=== PATIENT | female | born 1975 | race Caucasian/White ===

== ENCOUNTER 2016-10-29 17:22 | Emergency (ER) | payer BC ==
--- NOTE | 2016-10-29 17:51 | UCPHY ---
H & P Patient Type: New Chief Complaint Nursing Narrative: pain to lower back and sacral area for several months, denies recent injury Time Seen by Provider: 10/29/16 17:35 HPI/ROS: CHIEF COMPLAINT: Low back pain HISTORY OF PRESENT ILLNESS: The patient is a 41-year-old female who comes to the Urgent Care complaining of low back pain. She states that she has had gradually increasing low back pain over the last 2 months. She has tried exercise and physical therapy without any improvement. She has a history of breast cancer with lumpectomy 2007. She has not had any recent PET scans or further follow-up. The pain is in the middle lower back and radiates to both flanks. It does not radiate down either leg. No paresthesias. She does complain of imbalance however and almost fell down the stairs today at work. She feels that this imbalance sensation is intermittent. No fevers. No trauma. No bowel or bladder abnormalities. She states that the pain is worse in the morning. REVIEW OF SYSTEMS: Constitutional: denies: chills, fever, recent illness, recent injury EENTM: denies: blurred vision, double vision, nose congestion Respiratory: denies: cough, shortness of breath Cardiac: denies: chest pain, irregular heart rate, lightheadedness, palpitations Gastrointestinal/Abdominal: denies: abdominal pain, diarrhea, nausea, vomiting, blood streaked stools Genitourinary: denies: dysuria, frequency, hematuria, pain Musculoskeletal: See HPI Skin: denies: lesions, rash, jaundice, bruising Neurological: denies: headache, numbness, paresthesia, tingling, dizziness, weakness Hematologic/Lymphatic: denies: blood clots, easy bleeding, easy bruising Immunologic/allergic: denies: HIV/AIDS, transplant EXAM: GENERAL: Well-appearing, well-nourished and in no acute distress. HEAD: Atraumatic, normocephalic. EYES: Pupils equal round and reactive to light, extraocular movements intact, sclera anicteric, conjunctiva are normal. ENT: TMs normal, nares patent, oropharynx clear without exudates. Moist mucous membranes. NECK: Normal range of motion, supple without lymphadenopathy or JVD. LUNGS: Breath sounds clear to auscultation bilaterally and equal. No wheezes rales or rhonchi. HEART: Regular rate and rhythm without murmurs, rubs or gallops. ABDOMEN: Soft, nontender, normoactive bowel sounds. No guarding, no rebound. No masses appreciated. BACK: No CVA tenderness, no spinal tenderness, step-offs or deformities EXTREMITIES: Normal range of motion, no pitting or edema. No clubbing or cyanosis. NEUROLOGICAL: Cranial nerves II through XII grossly intact. Normal speech, normal gait here in the urgent care. able to touch toes, 5/5 strength, normal movement in all extremities, normal sensation PSYCH: Normal mood, normal affect. SKIN: Warm, dry, normal turgor, no visible rashes or lesions. Source: Patient Exam Limitations: No limitations - Personal History LMP (Females 10-55): 22-28 Days Ago - Medical/Surgical History Hx Asthma: No Hx Chronic Respiratory Disease: No Hx Diabetes: No Hx Cardiac Disease: No Hx Renal Disease: No Hx Cirrhosis: No Other PMH: breast cancer - Family History Significant Family History: Hypertension - Social History Smoking Status: Never smoked Alcohol Use: Sober Drug Use: None Constitutional: Initial Vital Signs Temperature (C) 36.6 C 10/29/16 17:30 Heart Rate 62 10/29/16 17:30 Respiratory Rate 18 10/29/16 17:30 Blood Pressure 119/66 10/29/16 17:30 O2 Sat (%) 98 10/29/16 17:30 O2 Delivery Mode Room Air Allergies/Adverse Reactions: No Known Allergies Allergy (Verified 10/29/16 18:08) Home Medications: Medication Instructions Recorded NK [No Known Home Meds] 10/29/16 Medical Decision Making ED Course/Re-evaluation: The patient's history is concerning for metastasis to the lumbar spine and cord impingement. I will transfer her to the emergency department. I discussed her case with Dr. Cande Contreras and recommended MRI imaging. Patient understands and agrees with this plan. She will drive herself there does not wish to take an ambulance. Differential Diagnosis: Partial list of the Differential diagnosis considered include but were not limited to; muscle strain, stenosis, cord compression, diastasis and although unlikely based on the history and physical exam, I also considered infection, aneurysm, dissection. Departure - Departure Disposition: [facility] ER Clinical Impression: Low back pain Qualifiers: Chronicity: acute Back pain laterality: midline Sciatica presence: without sciatica Qualifier Code: (M54.5) Low back pain Condition: Fair Instructions: Acute Low Back Pain (ED) Referrals: NONE *PRIMARY CARE P,. [Primary Care Provider] - As per Instructions - PQRS PQRS Measurement: Not applicable
--- NOTE | 2016-10-29 19:02 | EDPHY ---
H & P Time Seen by Provider: 10/29/16 17:35 HPI/ROS: CHIEF COMPLAINT: Low back pain HISTORY OF PRESENT ILLNESS: This patient is a 41 year old female who was referred to the Emergency Department [place] [facility] [place] pain over the past 3-4 months and increasing in severity over time. Today, when walking up the stairs, she experienced an acute episode of sharp pain to her low back and states that her low back and knee "gave out" causing her to collapse. She describes her pain as a non-radiating localized in a band over her lower back, exacerbated when bending over, and most severe in the morning (7 /10 in severity). She denies any bowel or urinary complaints. She has tried Ibuprofen, chiropractic adjustment, and changes to her exercise routine without improvement to her pain. She was able to ski this weekend without acute exacerbation of her pain. Medical history includes breast cancer in 2007. REVIEW OF SYSTEMS: Aside from elements discussed in the HPI, a comprehensive 10-point review of systems was reviewed and is negative. PAST MEDICAL HISTORY: Breast cancer treated with lumpectomy, chemo, and radiation (2007). Cholecystectomy. SOCIAL HISTORY: Single, lives in [place]. PHYSICAL EXAM: VITAL SIGNS: Reviewed by me GENERAL: Well-developed, well-nourished, resting comfortably in no respiratory distress. HEENT: Atraumatic. Eyes: No icterus, no injection. Mouth: moist mucous membranes. No erythema or lesions. Neck: supple with no adenopathy. LUNGS: Clear to auscultation bilaterally, no wheezes, rhonchi or rales. CARDIAC: Regular rate and rhythm, no rubs, murmurs or gallops. ABDOMEN: Soft, nontender, nondistended, bowel sounds normal. BACK: No CVA tenderness. Tenderness to palpation over L5. EXTREMITIES: No trauma. No edema. Range of motion is normal throughout. NEURO: Alert and oriented, grossly nonfocal. SKIN: Warm and dry, no rash. PSYCHIATRIC: Normal mentation, no agitation. Portions of this note were transcribed by a emergency medical services coordinator. I personally performed a history, physical exam, medical decision making, and confirmed accuracy of information the transcribed note. - Personal History LMP (Females 10-55): 22-28 Days Ago - Medical/Surgical History Hx Asthma: No Hx Chronic Respiratory Disease: No Hx Diabetes: No Hx Cardiac Disease: No Hx Renal Disease: No Hx Cirrhosis: No Other PMH: breast cancer - Family History Significant Family History: Hypertension - Social History Smoking Status: Never smoked Constitutional: Initial Vital Signs Temperature (C) 36.6 C 10/29/16 17:30 Heart Rate 62 10/29/16 17:30 Respiratory Rate 18 10/29/16 17:30 Blood Pressure 119/66 10/29/16 17:30 O2 Sat (%) 98 10/29/16 17:30 O2 Delivery Mode Room Air Allergies/Adverse Reactions: No Known Allergies Allergy (Verified 10/29/16 18:08) Home Medications: Medication Instructions Recorded Cyclobenzaprine [Flexeril 10 MG 10 mg PO TID PRN #20 tab 10/29/16 (RX)] Hydrocodone/APAP 5/325 [K[place] 1 tab PO Q6H PRN #15 tab 10/29/16 5/325 (RX)] Medical Decision Making - Diagnostics Imaging: Study: MRI of the lumbar spine Indication: Pain Results: MRI of the lumbar spine was obtained. The results of the study are: bulging disc at L-5; otherwise negative. The study was read by the radiologist, Dr. Dontrell Doan. I viewed the images myself on the PACS system. Study: MRI of the pelvis Indication: Pain Results: MRI of the pelvis was obtained. The results of the study are: negative. The study was read by the radiologist, Dr. Dontrell Doan. I viewed the images myself on the PACS system. ED Course/Re-evaluation: The patient declines pain medication at this time. Plan for MRI of the lumbar spine and pelvis. 1743: Imaging results reported to me by Dr. Doan, radiology. I discussed these results with the patient who is relieved. She will be discharged home with a referral to the on-call neurosurgeon for follow-up. Differential Diagnosis: Diff dx for patients back pain considered but not limited to musculoskeletal pain, disc disease, acute herniated disc, pathologic fracture, metastasis, transverse myelitis, epidural abscess, infection, arthridities, spinal stenosis. - Data Points Medications Given: Discontinued Medications Acetaminophen/Hydrocodone Bitart (Kodi[place] 5/325mg Prepack#6) 1 btl TAKEHOME EDNOW ONE Stop: 10/29/16 21:59 Last Admin: 10/29/16 22:24 Dose: 1 btl Cyclobenzaprine HCl (Flexeril 10 Mg Prepack#3) 1 btl DORIAN BENÍTEZNOW ONE Stop: 10/29/16 22:00 Last Admin: 10/29/16 22:23 Dose: 1 btl Departure - Departure Disposition: Home, Routine, Self-Care Clinical Impression: Low back pain Qualifiers: Chronicity: acute Back pain laterality: midline Sciatica presence: without sciatica Qualifier Code: (M54.5) Low back pain Condition: Good Instructions: Hydrocodone/Acetaminophen (By mouth), Cyclobenzaprine (By mouth) , Acute Low Back Pain (ED) Additional Instructions: 1. Call to schedule a follow-up appointment with a neurosurgeon for further evaluation of your low back pain. We have referred you to Dr. Medley. 2. Follow-up with Dr. Tomas for further evaluation this week. You have also been given referral to Dr. Kingston, who you may see is a primary care physician. 3. Take 650mg Tylenol every 6 hours as needed for pain. 4. Take Kodiak as prescribed, as needed for severe pain. Please be aware that Kodiak also has Tylenol in it. 5. Take Flexeril as prescribed for muscle spasms, especially in the morning. 6. Return to the Emergency Department for severe pain, if you lose control of your bladder or bowel, experience radiating pain or tingling to your legs, or for other serious concerns. Referrals: Jesus Medley MD [Medical Doctor] - As per Instructions Duong Tomas MD [Medical Doctor] - As per Instructions Regi Kingston MD [Medical Doctor] - As per Instructions Prescriptions: Cyclobenzaprine [Flexeril 10 MG (RX)] 10 mg PO TID PRN #20 tab PRN Reason: Muscle Spasms Hydrocodone/APAP 5/325 [Kodi[place] 5/325 (RX)] 1 tab PO Q6H PRN #15 tab PRN Reason: Pain Report Scribed for: Cande Contreras Report Scribed by: Barbara Wong Date of Report: 10/29/16 Time of Report: 19:02
[2016-10-29] MEDS ORDERED: HYDROCOD/APAP 5/325 PREPACK#6 BTL TAKEHOME ONE (21:58)
[2016-10-29] MEDS ORDERED: CYCLOBENZAPRINE 10MG PREPACK#3 BTL TAKEHOME ONE (21:59)
[2016-10-29 22:29] VITALS: BP 117/72; PULSE 63; RESP 16; TEMP 98.1; O2SAT 95
--- NOTE | 2016-10-29 22:36 | MR ---
MRI of the Lumbar Spine (Without Contrast) Indication: Back pain and instability. History of breast cancer. Technique: Sagittal and axial T1 and T2 and sagittal STIR MR sequences of the lumbar spine, without contrast. Axial imaging from T12-S1. Comparison: MRI lumbar spine dated June 05, 2011 Findings: Minimal levocurvature may be due to muscle spasm or positioning. The lumbar spine is othe rwise anatomically aligned. Benign diskogenic Modic changes at the L5-S1 level has increased since 2 011. The bone marrow signal is otherwise normal. No compression fracture, pars defect, or bone lan ow-replacing lesion. The paraspinal soft tissues are normal. The aorta is normal caliber. The conu s medullaris is at L1-L2. The spinal canal is capacious. 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 T12-L1: Normal disk. The central canal and neural foramina are widely patent. L1-L2: Normally hydrated disks. The central canal and neural foramina are widely patent. L2-L3: Normally hydrated disk and minimal facet hypertrophy. The central canal and neural foramina are widely patent. L3-L4: Minimal facet hypertrophy. Normally hydrated disks. The central canal and neural foramina a re widely patent. L4-L5: Disk desiccation and minimal posterior disk bulge result in minimal central canal narrowing. A T1 hyperintense annular tear is present along the posterior midline of the disk. Facet hypertroph y combined with a disk bulge results in minimal bilateral neural foraminal narrowing. No change since 2010. L5-S1: The previous large extruded disk fragment has been resorbed. A diffuse broad-based disk bulge combined with a T2 hyperintense posterior annulus tear results in minimal acquired central canal narr owing. The disk bulge combined with facet hypertrophy results in mild to moderate neural foraminal s tenosis. Impression: 1. No evidence of metastatic disease. 2. Moderate degenerative disk disease at L5-S1, with diffuse posterior bulging and annulus tear, res ulting in minimal central canal narrowing and mild to moderate bilateral neural foraminal stenosis. N o residual extruded disk fragment (resolved since 2010). 3. No disk herniation or significant central canal narrowing at any level. 4. Small intramural uterine leiomyoma.
--- NOTE | 2016-10-29 22:48 | MR ---
MRI of the Sacrum, Without Contrast Indication: Pain. History of breast cancer. Technique: Sagittal, coronal, and axial T2 fat-suppressed and T1-weighted imaging. Comparison: Sacrum and coccygeal films dated June 05, 2011. Findings: Bone marrow signal is normal. No bone marrow-replacing lesion to suggest metastatic disea se. No fracture. Diskogenic Modic changes at the L5-S1 level are better characterized on MRI of the lumbar spine reported separately. No adnexal mass or free fluid. Bilateral ovaries are normal size , with small peripheral follicles. The anteverted uterus is normal size. A 1-cm intramural uterine leiomyoma is present in the right lower uterine segment. The endometrial lining is homogeneous and n ormal thickness (10 mm). Impressions 1. No evidence of metastatic disease. 2. No evidence of sacroiliitis. 3. No adnexal mass or free fluid. 4. Degenerative disk disease at L5-S1. 5. Small intramural uterine leiomyoma. Comment: The results were discussed with Dr. Contreras.
== END 2016-10-29 22:34 | disposition home or self-care (01) ==
LOC: CED 17:22
DX: M54.5 Low back pain (principal); Z85.3 Personal history of malignant neoplasm of breast
CPT/HCPCS: G0463-PO

== ENCOUNTER → 2017-02-20 | Outpatient (CLI) | payer BC | LOC: FIMAGING 17:41 → EDSTATUS 17:41 | PROVIDERS: ATTEND Neurological Surgery | DX: M51.36 Other intervertebral disc degeneration, lumbar region (principal) ==

== ENCOUNTER 2017-09-04 18:40 | Emergency (ER) | payer BC ==
[2017-09-04 18:47] VITALS: RESP 18; TEMP 97.5
--- NOTE | 2017-09-04 19:13 | EDPHY ---
H & P Stated Complaint: cut base of l 2nd digit with knife cutting ananda Time Seen by Provider: 09/04/17 19:03 HPI/ROS: CHIEF COMPLAINT: Finger laceration HISTORY OF PRESENT ILLNESS: The patient is a 41-year-old female who comes to the emergency department complaining of laceration to her left index finger at the base. Just distal to the joint line. Normal range of motion and sensation. She cut it with a knife while trying to cut open fruit. She denies other injuries. REVIEW OF SYSTEMS: Constitutional: denies: chills, fever, recent illness, recent injury EENTM: denies: blurred vision, double vision, nose congestion Respiratory: denies: cough, shortness of breath Cardiac: denies: chest pain, irregular heart rate, lightheadedness, palpitations Gastrointestinal/Abdominal: denies: abdominal pain, diarrhea, nausea, vomiting, blood streaked stools Genitourinary: denies: dysuria, frequency, hematuria, pain Musculoskeletal: denies: joint pain, muscle pain Skin: See HPI Neurological: denies: headache, numbness, paresthesia, tingling, dizziness, weakness Hematologic/Lymphatic: denies: blood clots, easy bleeding, easy bruising Immunologic/allergic: denies: HIV/AIDS, transplant EXAM: GENERAL: Well-appearing, well-nourished and in no acute distress. HEAD: Atraumatic, normocephalic. EYES: Pupils equal round and reactive to light, extraocular movements intact, sclera anicteric, conjunctiva are normal. ENT: TMs normal, nares patent, oropharynx clear without exudates. Moist mucous membranes. NECK: Normal range of motion, supple without lymphadenopathy or JVD. LUNGS: Breath sounds clear to auscultation bilaterally and equal. No wheezes rales or rhonchi. HEART: Regular rate and rhythm without murmurs, rubs or gallops. ABDOMEN: Soft, nontender, normoactive bowel sounds. No guarding, no rebound. No masses appreciated. BACK: No CVA tenderness, no spinal tenderness, step-offs or deformities EXTREMITIES: Normal range of motion, no pitting or edema. No clubbing or cyanosis. NEUROLOGICAL: Cranial nerves II through XII grossly intact. Normal speech, normal gait. 5/5 strength, normal movement in all extremities, normal sensation PSYCH: Normal mood, normal affect. SKIN: 1.5 cm laceration distal to the MCP. Palmar aspect, normal function and tendon strength. Normal sensation distally. Normal capillary refill. Source: Patient Exam Limitations: No limitations - Personal History LMP (Females 10-55): 1-7 Days Ago Current Tetanus/Diphtheria Vaccine: Yes - Medical/Surgical History Hx Asthma: No Hx Chronic Respiratory Disease: No Hx Diabetes: No Hx Cardiac Disease: No Hx Renal Disease: No Hx Cirrhosis: No Hx Alcoholism: No Hx HIV/AIDS: No Hx Splenectomy or Spleen Trauma: No Other PMH: breast cancer - Family History Significant Family History: No pertinent family hx - Social History Smoking Status: Never smoked Alcohol Use: Sober Drug Use: None Constitutional: Initial Vital Signs Temperature (C) 36.4 C 09/04/17 18:44 Heart Rate 72 09/04/17 18:44 Respiratory Rate 18 09/04/17 18:44 Blood Pressure 112/79 09/04/17 18:44 O2 Sat (%) 99 09/04/17 18:44 O2 Delivery Mode Room Air Allergies/Adverse Reactions: No Known Allergies Allergy (Verified 09/04/17 18:44) Home Medications: Medication Instructions Recorded NK [No Known Home Meds] 09/04/17 Medical Decision Making Procedures: Procedure: Laceration repair. Verbal consent was obtained from the patient. The 1.5 cm finger laceration was anesthetized with 1% lidocaine with bicarbonate locally infiltrated. The wound was irrigated copiously according to protocol, draped and explored to its base. It was approximately 1/2 cm deep. There were no deep structures involved. No tendon, nerve, or vascular injury was identified when explored through full range of motion. No foreign body was identified. The wound was repaired with is 6.0 PDS, 3 sutures, interrupted. The wound repair was simple without wound margin revisement or multiple flap alignment. The procedure was performed by myself. A dressing was then placed with sterile gauze. ED Course/Re-evaluation: We discussed suture care and removal. Patient is happy with this and the outcome. She declines further workup or testing. We discussed indications for returning. Differential Diagnosis: Partial list of the Differential diagnosis considered include but were not limited to; laceration, tendon injury, vascular injury and although unlikely based on the history and physical exam, I also considered infection, foreign body. I discussed these differential diagnoses and the plan with the patient as well as the usual and expected course. The patient understands that the diagnosis is provisional and that in medicine we are not always correct and that further workup is often warranted. Usual and customary warnings were given. All of the patient's questions were answered. The patient was instructed to return to the emergency department should the symptoms at all worsen or return, otherwise to followup with the physician as we discussed. Departure - Departure Disposition: Home, Routine, Self-Care Clinical Impression: Laceration of left index finger Qualifiers: Encounter type: initial encounter Damage to nail status: without damage Foreign body presence: without foreign body Qualified Code(s): S61.211A - Laceration without foreign body of left index finger without damage to nail, initial encounter Condition: Fair Instructions: Finger Laceration (ED) Additional Instructions: Return to have your stitches removed in 10 days Referrals: NONE *PRIMARY CARE P,. [Primary Care Provider] - As per Instructions Lawrence Garcia MD [Medical Doctor] - As per Instructions
[2017-09-04 19:50] VITALS: BP 123/78; PULSE 55; O2SAT 96
== END 2017-09-04 19:50 | disposition home or self-care (01) ==
PROC: 0HQGXZZ Repair Left Hand Skin, External Approach (ICD-10-PCS; principal; 2017-09-04)
DX: S61.211A Laceration without foreign body of left index finger without damage to nail, initial encounter (principal); Z85.3 Personal history of malignant neoplasm of breast; W26.0XXA Contact with knife, initial encounter; Y99.8 Other external cause status